=== PATIENT | female | born 1985 | race Caucasian/White ===

== ENCOUNTER 2019-02-21 06:08 | Outpatient (CLI) | payer OTHER ==
[2019-02-21 14:35] LABS: BHCG - Serum Negative (NEGATIVE); Pregs Control Background? CLEAR/WHITE (CLR/WHITE); Pregs Control Bar Appear? YES (CONTROL BAR)
[2019-02-21 14:37] LABS: Anion Gap 12 mmol/L (10-20); BUN (Urea Nitrogen) 13 mg/dL (7.0-18.7); Calc. Creatinine Clearance 0 mL/min (70-130); Carbon Dioxide 23 mmol/L (22-29); Chloride 108 mmol/L (98-107); Estimated GFR-MDRD Greater than 90; Glucose 108 mg/dL (70-105); Sodium 139 mmol/L (136-145)
[2019-02-21 15:34] LABS: #Eosinphils 0.6 thou/uL (0.0-0.7); #Monocytes 0.5 thou/uL (0.11-0.59); #Neutrophils 6.8 thou/uL (1.40-6.50); %Basophils 0.4 % (0.0-1.0); %Eosinophils 6.4 % (0.0-10.0); %Lymphocytes 20.2 % (21.0-51.0); %Monocytes 5.3 % (0.0-10.0); %Neutrophils 67.7 % (42.0-75.0); Hemoglobin 10.6 g/dL (12.0-16.0); Hypochromia SLIGHT = 6-15 cells (100X) (0-5/hpf); MDiff Complete? YES; Mean Corpuscular HGB CONC 31.6 g/dL (32.0-36.0); Mean Corpuscular Hemoglobin 23.4 pg (27.0-31.0); Mean Platelet Volume 9.6 fL (7.4-10.4); Microcytosis SLIGHT = 6-15 cells (100X) (0-5/hpf); Ovalocytes SLIGHT = 2-5 cells (100X) (0-1/hpf); Platelet Count 289 thou/uL (130-400); Platelet Morphology Comment Appears Adequate; Polychromasia MODERATE = 3-4 cells (100X) (0-2/hpf); RBC Distribution Width 17.8 % (11.5-14.5); Red Blood Cell (RBC) Count 4.51 mill/uL (4.20-5.40); Stomatocytes SLIGHT = 2-5 cells (100X) (0-1/hpf)
--- NOTE | 2019-02-23 18:48 | EKG ---
Test Reason : Blood Pressure : / mmHG Vent. Rate : 085 BPM Atrial Rate : 085 BPM P-R Int : 164 ms QRS Dur : 092 ms QT Int : 392 ms P-R-T Axes : 059 050 033 degrees QTc Int : 466 ms Normal sinus rhythm Normal ECG No previous ECGs available Confirmed by DR. Modesto CLIFTON ([id number]) on 02/23/2019 6:47:49 PM Referred By: MELODY Confirmed By:DR. Modesto CLIFTON
== END 2019-02-21 06:09 | disposition home or self-care (01) ==
LOC: LABBT 06:08
PROVIDERS: ATTEND Specialist
DX: Z01.818 Encounter for other preprocedural examination (principal); K42.9 Umbilical hernia without obstruction or gangrene; E66.01 Morbid (severe) obesity due to excess calories; Z68.43 Body mass index [BMI] 50.0-59.9, adult
CPT/HCPCS: 80048; 84703; 85025; 93005; 93010

== ENCOUNTER 2019-02-25 07:34 | Day surgery (SDC) | payer OTHER ==
--- NOTE | 2019-02-21 10:14 | HP ---
HISTORY OF PRESENT ILLNESS: Shabana Mcdowell is a 33-year-old female, 278 pounds, 5 feet 2 inches, 50 BMI, who smokes 1-2 cigarettes a day. Has an umbilical hernia. It has been bothersome. It is causing her discomfort. I have talked to her about bariatric surgery, but she has Medicaid. This probably will take some time to navigate the Medicaid system and wants to proceed robot mesh repair of umbilical hernia. This is probably an incisional hernia as she has had a past laparoscopic cholecystectomy and C-sections. ALLERGIES: NONE. HABITS: Tobacco; 1-2 cigarettes a day. Alcohol, occasionally. PAST SURGICAL HISTORY: 1. D and C. 2. C-sections x3. 3. Laparoscopic cholecystectomy. PAST MEDICAL HISTORY: Noncontributory. MEDICATIONS: None. REVIEW OF SYSTEMS: Ten-point noncontributory. PHYSICAL EXAMINATION: VITAL SIGNS: 278 pounds, 5 feet 2 inches, 250 BMI, blood pressure 156/85, heart rate 86, temperature 94.8 degrees. HEAD, EARS, EYES, NOSE, AND THROAT: Unremarkable. LUNGS: Clear to auscultation. CARDIAC: Regular rate and rhythm without murmur or gallop. ABDOMEN: Obese, large pannus, dependent. EXTREMITIES: Unremarkable. Umbilical hernia feels to be a 2.5 to 3 cm defect, it is reducible with some difficulty. ASSESSMENT AND PLAN: 1. Umbilical hernia/incisional hernia. We would recommend robot mesh repair as outpatient. She understands risks and benefits, and consents. 2. Morbid obesity. BMI 50. There are no comorbidity. 3. She did have gestational diabetes and hypertension, but this has resolved. I would recommend she consider bariatric surgery. She understands risks and benefits and will attend the bariatric seminar online and work with our sales support representative and see if Medicaid will cover this. Job ID: [id number]
[2019-02-21 13:29] VITALS: BMI 51.2
[2019-02-25] MEDS ORDERED: Ketorolac Tromethamine 30 MG/ML VIAL ONE (08:00)
[2019-02-25] MEDS ORDERED: Fentanyl 100 MCG/2 ML VIAL ONE ×4 (08:18→11:53)
[2019-02-25] MEDS ORDERED: Bupivacaine HCl 0.5%/Epinephrine 1:200,000/PF 30 ml Vial ONE (08:33)
[2019-02-25] MEDS ORDERED: Promethazine HCl 25 MG/ML VIAL IM PRN (10:33)
[2019-02-25] MEDS ORDERED: Ondansetron HCl/PF 4 MG/2 ML Vial IVP PRN (10:33)
[2019-02-25] MEDS ORDERED: Promethazine HCl 25 MG/ML VIAL SLOW IVP PRN (10:33)
--- NOTE | 2019-02-25 11:15 | OP ---
DATE OF PROCEDURE: 02/25/2019 PREOPERATIVE DIAGNOSES: Super obesity and umbilical hernia. POSTOPERATIVE DIAGNOSES: Super obesity and umbilical hernia with 3 different hernia defects about the umbilicus, one 3 cm, the other 2 cm and the other was 2 cm. PROCEDURE PERFORMED: Robot laparoscopic mesh reinforcement of primary fascial closure. ANESTHESIA: General, local 0.5% Marcaine with epinephrine 30 mL. DESCRIPTION OF PROCEDURE: The patient was taken to the operating room where under general anesthesia, Todd catheter placed at the beginning of the procedure and removed at the end. Abdomen was prepared with ChloraPrep and draped in routine fashion. Local anesthetic was infiltrated in the skin and subcutaneous tissue about the operative site. Left paramedian incision was made in the upper abdomen and pneumoperitoneum to 15 mmHg was obtained with a Veress needle, replaced with an 11 balloon port. Bilateral subcostal far lateral incisions made actually upper mid abdomen far lateral. An 8 mm port was placed. There was incarcerated omentum and 3 different hernia defects as described above. This was taken down robotically, after the robot was docked in position. Cautery used for hemostasis. Hernia sacs were excised where able. The 2 adjacent fascial defect closed with continuous suture of #1 Stratafix. A separate fascial defect closed with #0 StrataFix both after reducing pneumoperitoneum to 8 mmHg. Once this was completed, the 11 cm Ventralex mesh positioned with the coated side against the viscera and positioned against the abdominal wall, and secured with continuous suture of 2-0 V-Loc suture. Once this was completed, the hernia repair was then reinforced, pneumoperitoneum reduced and all skin incisions approximated with subdermal 4-0 Monocryl and [place] glue applied. Job ID: [id number]
[2019-02-25] MEDS ORDERED: PROPOFOL 200 MG/20 ML VIAL ONE (12:02)
[2019-02-25] MEDS ORDERED: Rocuronium Bromide 10 MG/ML (10ML VIAL) ONE (12:02)
[2019-02-25] MEDS ORDERED: Ondansetron PF 4 MG/2 ML Vial ONE (12:02)
[2019-02-25] MEDS ORDERED: Glycopyrrolate 0.2 MG/ML 5 ML SYRINGE ONE (12:02)
[2019-02-25] MEDS ORDERED: Lidocaine 1% PF 5 ML VIAL ONE (12:02)
[2019-02-25] MEDS ORDERED: Dexamethasone 20 MG/5 ML VIAL ONE (12:02)
[2019-02-25] MEDS ORDERED: Succinylcholine Chloride 20 MG/ML 10 ml SYRINGE FS ONE (12:02)
[2019-02-25] MEDS ORDERED: HYDROmorphone 0.5 MG/0.5 ML SYRINGE ONE (12:18)
[2019-02-25] MEDS ORDERED: HYDROcodone/Acetaminophen 5/325 mg Tablet ONE (13:44)
== END 2019-02-25 14:45 | disposition home or self-care (01) ==
LOC: SDC 07:34
PROVIDERS: ATTEND Specialist
PROC: 0WUF4JZ Supplement Abdominal Wall with Synthetic Substitute, Percutaneous Endoscopic Approach (ICD-10-PCS; principal; 2019-02-25)
DX: K42.9 Umbilical hernia without obstruction or gangrene (principal); F17.210 Nicotine dependence, cigarettes, uncomplicated; E66.01 Morbid (severe) obesity due to excess calories; Z68.43 Body mass index [BMI] 50.0-59.9, adult
CPT/HCPCS: C1781; J0131; J0670; J0690; J1100; J1170; J1885; J2001; J2405; J2704; J3010

== ENCOUNTER 2022-04-03 08:07 | Emergency (ER) | payer OTHER ==
[2022-04-03 08:33] LABS: #Basophils 0.1 thou/uL (0.0-0.2); #Eosinphils 0.5 thou/uL (0.0-0.7); #Lymphocytes 1.8 thou/uL (1.20-3.40); #Monocytes 0.6 thou/uL (0.11-0.59); #Neutrophils 6.8 thou/uL (1.40-6.50); %Basophils 0.6 % (0.0-1.0); %Eosinophils 4.9 % (0.0-10.0); %Lymphocytes 18.7 % (21.0-51.0); %Monocytes 6.4 % (0.0-10.0); %Neutrophils 69.4 % (42.0-75.0); Hemoglobin 11.5 g/dL (12.0-16.0); Mean Corpuscular HGB CONC 30.9 g/dL (32.0-36.0); Mean Corpuscular Volume 77.6 fl (78.0-98.0); Mean Platelet Volume 8.5 fL (7.4-10.4); Platelet Count 310 10x3/uL (130-400); RBC Distribution Width 16.3 % (11.5-14.5); Red Blood Cell (RBC) Count 4.79 mill/uL (4.20-5.40); White Blood Cell (WBC) Count 9.8 10x3/uL (4.8-10.8)
[2022-04-03 08:44] LABS: BHCG - Serum Negative (NEGATIVE); Pregs Control Background? CLEAR/WHITE (CLR/WHITE); Pregs Control Bar Appear? YES (CONTROL BAR)
[2022-04-03 08:53] LABS: ALT (SGPT) 12 U/L (8-55); AST (SGOT) 10 U/L (5-34); Albumin 3.8 g/dL (3.5-5.0); Alkaline Phosphatase 87 U/L (40-110); Anion Gap 13 mmol/L (10-20); BUN (Urea Nitrogen) 13 mg/dL (7.0-18.7); Bilirubin, Total 0.3 mg/dL (0.2-1.2); Calc. Creatinine Clearance 0 mL/min (70-130); Calcium 8.7 mg/dL (7.8-10.44); Carbon Dioxide 24 mmol/L (22-29); Chloride 106 mmol/L (98-107); Estimated GFR 121; Globulin 3.1 g/dL (2.4-3.5); Glucose 141 mg/dL (70-105); Lipase 9 U/L (8-78); Potassium 3.9 mmol/L (3.5-5.1); Protein, Total 6.9 g/dL (6.0-8.3); Sodium 139 mmol/L (136-145)
[2022-04-03] MEDS ORDERED: Ketorolac Tromethamine 30 MG/ML VIAL ONE (09:57)
[2022-04-03] MEDS ORDERED: Iopamidol-370 76% 500 ML 1 ML ONE (10:45)
[2022-04-03] MEDS ORDERED: Morphine 4 MG/ML VIAL ONE (11:49)
[2022-04-03] MEDS ORDERED: Ondansetron PF 4 MG/2 ML Vial ONE (11:49)
[2022-04-03] MEDS ORDERED: medroxyPROGESTERone Acetate 5 MG TAB PO SCH (12:00)
== END 2022-04-03 12:12 | disposition home or self-care (01) ==
LOC: ERS 08:07
DX: N93.8 Other specified abnormal uterine and vaginal bleeding (principal); F17.210 Nicotine dependence, cigarettes, uncomplicated
CPT/HCPCS: 36415; 74177; 76856; 80053; 83690; 84703; 85025; 86850; 86900; 86901; 94760; 96374; 96375; J1885; J2270; J2405; Q9967